=== PATIENT | male | born 1980 ===

== ENCOUNTER 2020-03-24 21:06 | Emergency (ER) | payer BC ==
[2020-03-24 21:36] LABS: Basophils % 0.2 % (0-1.3); Hematocrit 40.7 % (39.6-49.0); Lymphocytes % 8.4 % (15.3-44.8); MPV 9.4 fL (7.6-11.3); RBC Red Blood Cell Count 4.41 M/uL (4.33-5.43)
[2020-03-24] MEDS ORDERED: ONDANSETRON 4 MG/2 ML VIAL ONE (21:42)
[2020-03-24] MEDS ORDERED: NA CHLORIDE 0.9% 1,000 ML ONE ×2 (21:42→22:54)
[2020-03-24 21:50] LABS: ALT/SGPT 33 U/L (12-78); AST/SGOT 21 U/L (15-37); Albumin 3.9 g/dL (3.4-5.0); Alkaline Phosphatase 56 U/L (45-117); BUN Blood Urea Nitrogen 13 mg/dL (7-18); Bicarbonate 26 mmol/L (21-32); Bilirubin Direct < 0.1 mg/dL (0-0.2); Bilirubin Total 0.6 mg/dL (0.2-1.0); Glucose Level 98 mg/dL (74-106); Lipase 59 U/L (73-393); Potassium 3.3 mmol/L (3.5-5.1); Protein, Total 7.6 g/dL (6.4-8.2); Sodium Level 141 mmol/L (136-145)
[2020-03-24] MEDS ORDERED: PROMETHAZINE INJ 25 MG/ML AMP ONE (22:16)
[2020-03-24 22:28] LABS: Blood Morphology Comment NOT SEEN (NOT SEEN); Platelet Estimate ADEQ; White Blood Cell Scan OK (OK)
[2020-03-24] MEDS ORDERED: HALOPERIDOL LACT 5 MG/ML INJ ONE (22:54)
[2020-03-24 23:12] LABS: Barbiturates NEGATIVE (NEGATIVE); Benzodiazepines NEGATIVE (NEGATIVE); Cocaine NEGATIVE (NEGATIVE); METHAMPHETAM NEGATIVE (NEGATIVE); Methadone NEGATIVE (NEGATIVE); Opiates NEGATIVE (NEGATIVE); Phencyclidine NEGATIVE (NEGATIVE); THC Cannibis POSITIVE (NEGATIVE)
[2020-03-24 23:21] LABS: Urine Blood TRACE (NEG); Urine Glucose NEGATIVE (NEG); Urine Protein NEGATIVE (NEG); Urine pH 7.5 (5.0-7.0)
--- NOTE | 2020-03-24 23:31 | ER ---
Nurse's Notes [facility] Name: Chris Shi Age: 39 yrs Sex: Male : 1980 Arrival Date: 03/24/2020 Time: 21:08 Bed 4 Private MD: Diagnosis: Nausea and vomiting Presentation: 03/24 21:09 Chief complaint: Patient states: ADMITTED SMOKING WEED TODAY AT 1500. EMS states: rv DIFFUSED ABDOMINAL PAIN, WITH NAUSEA AND VOMITING SINCE SUNDAY. FEELING WEAK AND LOW BODY TEMP. SINUS SARAH AT 55. GIVEN ZOFRAN TWICE AND A LITER BOLUS OF NS. Coronavirus screen: Client denies travel out of the [place] in the last 14 days. cough unrelated to allergies, difficulty breathing, nausea, vomiting. Ebola Screen: No symptoms or risks identified at this time. Initial Sepsis Screen: Does the patient meet any 2 criteria? No. Patient's initial sepsis screen is negative. Does the patient have a suspected source of infection? No. Patient's initial sepsis screen is negative. Risk Assessment: Do you want to hurt yourself or someone else? Patient reports no desire to harm self or others. Onset of symptoms was March 23, 2020. 21:09 Method Of Arrival: EMS: [facility] rv 21:09 Acuity: OSWALDO 3 rv Triage Assessment: 21:14 General: Appears comfortable, Behavior is calm, cooperative. Pain: Complains of pain in rv abdomen. EENT: No signs and/or symptoms were reported regarding the EENT system. Neuro: Level of Consciousness is awake, alert, obeys commands, Oriented to person, place, time, situation. Cardiovascular: Patient's skin is warm and dry. Rhythm is sinus bradycardia. Respiratory: Reports shortness of breath on exertion Airway is patent Respiratory effort is even, unlabored, Breath sounds are clear bilaterally. Derm: Skin is intact. Historical: - Allergies: 21:13 No Known Allergies; rv - Home Meds: 21:14 losartan oral oral [Active]; rv - PMHx: 21:14 Hypertension; rv - PSHx: 21:14 Appendectomy; rv - Immunization history:: Adult Immunizations up to date. - Social history:: Smoking status: Patient reports the use of cigarette tobacco products, WEED, Patient uses street drugs, marijuana. Screenin:17 Abuse screen: Denies threats or abuse. Denies injuries from another. Nutritional rv screening: No deficits noted. Tuberculosis screening: No symptoms or risk factors identified. Fall Risk None identified. Assessment: 22:10 Reassessment: Patient and/or family updated on plan of care and expected duration. Pain ll2 level reassessed. General: Appears in no apparent distress. Behavior is calm, cooperative, appropriate for age. Pain: Denies pain. Neuro: Level of Consciousness is awake, alert, obeys commands, Oriented to person, place, time, situation. Cardiovascular: Patient's skin is warm and dry. Respiratory: Airway is patent Respiratory effort is even, unlabored, Respiratory pattern is regular, symmetrical. GI: No signs and/or symptoms were reported involving the gastrointestinal system. GI: No signs and/or symptoms were reported involving the gastrointestinal system. Reports nausea, vomiting. : No signs and/or symptoms were reported regarding the genitourinary system. EENT: No signs and/or symptoms were reported regarding the EENT system. Derm: Skin is intact, is healthy with good turgor, Skin is clammy, Skin is pink, warm \T\ dry. Skin temperature is warm. Musculoskeletal: Circulation, motion, and sensation intact. Range of motion: intact in all extremities. 23:14 Reassessment: Patient and/or family updated on plan of care and expected duration. Pain ll2 level reassessed. Patient is alert, oriented x 3, equal unlabored respirations, skin warm/dry/pink. 23:53 Reassessment: Patient and/or family updated on plan of care and expected duration. Pain ll2 level reassessed. Patient is alert, oriented x 3, equal unlabored respirations, skin warm/dry/pink. Vital Signs: 21:09 BP 139 / 103; Pulse 51; Resp 16; Temp 97.7; Pulse Ox 99% ; Weight 96.62 kg; Height 6 rv ft. 3 in. (190.50 cm); Pain 7/10; 22:44 BP 149 / 99; Pulse 63; Resp 24; Pulse Ox 96% on R/A; rv 23:53 BP 134 / 92; Pulse 45; Resp 18; Temp 98; Pulse Ox 96% on R/A; ll2 21:09 Body Mass Index 26.62 (96.62 kg, 190.50 cm) rv ED Course: 21:08 Patient arrived in ED. rv 21:09 Yuri, Dileep, RN is Primary Nurse. rv 21:11 Melodie Zuleta FNP-C is [facility]. kb 21:11 Zander Mead MD is Attending Physician. kb 21:12 Triage completed. rv 21:16 Arm band placed on right wrist. Patient placed in the treatment room, on a stretcher, rv Patient notified of wait time. 21:17 Patient has correct armband on for positive identification. monitoring tech on. Pulse rv ox on. NIBP on. 21:17 Maintain EMS IV. Dressing intact. Good blood return noted. Site clean \T\ dry. Gauge \T\ rv site: G18 LAC. 21:47 Chest Single View XRAY In Process Unspecified. EDMS Administered Medications: 21:49 Drug: NS 0.9% 1000 ml Route: IV; Rate: 1000 ml; Site: left forearm; ea 22:46 Follow up: Response: No adverse reaction; IV Status: Completed infusion; IV Intake: ll2 1000ml 21:50 Drug: Zofran (Ondansetron) 4 mg Route: IVP; Site: left forearm; ea 22:46 Follow up: Response: No adverse reaction ll2 22:09 Drug: Phenergan 12.5 mg Route: IVP; Site: left antecubital; ll2 22:46 Follow up: Response: No adverse reaction ll2 22:53 Drug: HALdol 2 mg Route: IVP; Site: left antecubital; ll2 23:41 Follow up: Response: No adverse reaction ll2 22:53 Drug: NS 0.9% 1000 ml Route: IV; Rate: 125 ml/hr; Site: left antecubital; ll2 23:53 Drug: Potassium Chloride 20 mEq Route: PO; ll2 23:53 Follow up: Response: Medication administered at discharge. ll2 Intake: 22:46 IV: 1000ml; Total: 1000ml. ll2 Outcome: 23:31 Discharge ordered by . kb 23:55 Discharged to home ambulatory. ll2 23:55 Condition: stable 23:55 Discharge instructions given to patient, Instructed on discharge instructions, follow up and referral plans. medication usage, Demonstrated understanding of instructions, follow-up care, medications, Prescriptions given X 3. 03/25 00:00 Patient left the ED. rv Signatures: Dispatcher [employer] EDMS Melodie Zuleta, SUPERCALENDER OPERATOR HELPER-C SUPERCALENDER OPERATOR HELPER-Ckb Nora Hernandez, RN RN Dileep Mccoy, RN RN rv Radha Velasco RN RN ll2
--- NOTE | 2020-03-24 23:32 | EDPHYS ---
Physician Documentation [facility] Name: Chris Shi Age: 39 yrs Sex: Male : 1980 Arrival Date: 03/24/2020 Time: 21:08 Bed 4 Private MD: ED Physician Zander Mead HPI: 03/25 00:19 This 39 yrs old Male presents to ER via EMS with complaints of n/v. kb 00:19 The patient presents to the emergency department with nausea, vomiting. Onset: The kb symptoms/episode began/occurred 4 day(s) ago. Possible causes: marijuana. The symptoms are aggravated by nothing. The symptoms are alleviated by nothing. Associated signs and symptoms: Pertinent positives: nausea, vomiting, Pertinent negatives: abdominal pain, anorexia, belching, constipation, diarrhea, dysuria, fever, flatulence, GI bleeding, hematuria. Severity of symptoms: At their worst the symptoms were moderate in the emergency department the symptoms are unchanged. The patient has not experienced similar symptoms in the past. The patient has not recently seen a physician. Historical: - Allergies: 03/24 21:13 No Known Allergies; rv - Home Meds: 21:14 losartan oral oral [Active]; rv - PMHx: 21:14 Hypertension; rv - PSHx: 21:14 Appendectomy; rv - Immunization history:: Adult Immunizations up to date. - Social history:: Smoking status: Patient reports the use of cigarette tobacco products, WEED, Patient uses street drugs, marijuana. ROS: 03/25 00:20 Constitutional: Negative for fever, chills, and weight loss, Cardiovascular: Negative kb for chest pain, palpitations, and edema, Respiratory: Negative for shortness of breath, cough, wheezing, and pleuritic chest pain, Back: Negative for injury and pain, MS/Extremity: Negative for injury and deformity, Skin: Negative for injury, rash, and discoloration, Neuro: Negative for headache, weakness, numbness, tingling, and seizure. Abdomen/GI: Positive for nausea and vomiting, Negative for abdominal pain, diarrhea, constipation. Exam: 00:20 Constitutional: This is a well developed, well nourished patient who is awake, alert, kb and in no acute distress. Head/Face: Normocephalic, atraumatic. Chest/axilla: Normal chest wall appearance and motion. Nontender with no deformity. No lesions are appreciated. Cardiovascular: Regular rate and rhythm with a normal S1 and S2. No gallops, murmurs, or rubs. Normal PMI, no JVD. No pulse deficits. Respiratory: Lungs have equal breath sounds bilaterally, clear to auscultation and percussion. No rales, rhonchi or wheezes noted. No increased work of breathing, no retractions or nasal flaring. Abdomen/GI: Soft, non-tender, with normal bowel sounds. No distension or tympany. No guarding or rebound. No evidence of tenderness throughout. Skin: Warm, dry with normal turgor. Normal color with no rashes, no lesions, and no evidence of cellulitis. MS/ Extremity: Pulses equal, no cyanosis. Neurovascular intact. Full, normal range of motion. Neuro: Awake and alert, GCS 15, oriented to person, place, time, and situation. Cranial nerves II-XII grossly intact. Motor strength 5/5 in all extremities. Sensory grossly intact. Cerebellar exam normal. Normal gait. Vital Signs: 03/24 21:09 BP 139 / 103; Pulse 51; Resp 16; Temp 97.7; Pulse Ox 99% ; Weight 96.62 kg; Height 6 rv ft. 3 in. (190.50 cm); Pain 7/10; 22:44 BP 149 / 99; Pulse 63; Resp 24; Pulse Ox 96% on R/A; rv 23:53 BP 134 / 92; Pulse 45; Resp 18; Temp 98; Pulse Ox 96% on R/A; ll2 21:09 Body Mass Index 26.62 (96.62 kg, 190.50 cm) rv MDM: 21:11 Patient medically screened. kb 03/25 00:20 Data reviewed: vital signs, nurses notes. Data interpreted: Pulse oximetry: on room air kb is 96 %. Interpretation: normal. Counseling: I had a detailed discussion with the patient and/or guardian regarding: the historical points, exam findings, and any diagnostic results supporting the discharge/admit diagnosis, lab results, radiology results, the need for outpatient follow up, a family practitioner, to return to the emergency department if symptoms worsen or persist or if there are any questions or concerns that arise at home. 03/24 21:14 Order name: Basic Metabolic Panel; Complete Time: 21:55 rv 03/24 21:14 Order name: CBC with Diff; Complete Time: 22:30 rv 03/24 21:14 Order name: Hepatic Function; Complete Time: 21:55 rv 03/24 21:14 Order name: Lipase; Complete Time: 21:55 rv 03/24 22:18 Order name: UDS; Complete Time: 23:19 kb 03/24 22:29 Order name: CBC Smear Scan; Complete Time: 22:30 EDMS 03/24 21:14 Order name: Chest Single View XRAY rv 03/24 23:16 Order name: Urine Dipstick--Ancillary (enter results); Complete Time: 23:28 tt3 03/24 21:14 Order name: IV Saline Lock; Complete Time: 21:17 rv 03/24 21:14 Order name: Labs collected and sent; Complete Time: 21:17 rv 03/24 21:14 Order name: EKG - Nurse/Tech; Complete Time: 21:26 rv 03/24 23:29 Order name: PO challenge kb Administered Medications: 03/24 21:49 Drug: NS 0.9% 1000 ml Route: IV; Rate: 1000 ml; Site: left forearm; ea 22:46 Follow up: Response: No adverse reaction; IV Status: Completed infusion; IV Intake: ll2 1000ml 21:50 Drug: Zofran (Ondansetron) 4 mg Route: IVP; Site: left forearm; ea 22:46 Follow up: Response: No adverse reaction ll2 22:09 Drug: Phenergan 12.5 mg Route: IVP; Site: left antecubital; ll2 22:46 Follow up: Response: No adverse reaction ll2 22:53 Drug: HALdol 2 mg Route: IVP; Site: left antecubital; ll2 23:41 Follow up: Response: No adverse reaction ll2 22:53 Drug: NS 0.9% 1000 ml Route: IV; Rate: 125 ml/hr; Site: left antecubital; ll2 23:53 Drug: Potassium Chloride 20 mEq Route: PO; ll2 23:53 Follow up: Response: Medication administered at discharge. ll2 Disposition: 03/25 03:31 Co-signature as Attending Physician, Zander Mead MD. [email or web address] Disposition: 03/24/20 23:31 Discharged to Home. Impression: Nausea and vomiting. - Condition is Stable. - Discharge Instructions: Nausea and Vomiting, Adult, [id number]. - Prescriptions for Bentyl 20 mg Oral Tablet - take 1 tablet by ORAL route every 6 hours As needed; 20 tablet. Zofran 4 mg Oral Tablet - take 1 tablet by ORAL route every 6 hours As needed; 20 tablet. Phenergan 25 mg Rectal Suppository - insert 1 suppository by RECTAL route every 8 hours As needed; 12 suppository. - Medication Reconciliation Form, Thank You Letter, Antibiotic Education, Prescription Opioid Use form. - Follow up: Emergency Department; When: As needed; Reason: Worsening of condition. Follow up: Private Physician; When: 2 - 3 days; Reason: Recheck today's complaints, Continuance of care, Re-evaluation by your physician. Signatures: Dispatcher [employer] EDMS Melodie Zuleta, NNEKA-C APRON MAN-Nora Saab, RN RN Dileep Mccoy RN RN rv [place], Lacie, RN RN 2 Zander Mead MD MD 7 Corrections: (The following items were deleted from the chart) 00:00 03/24 23:31 03/24/2020 23:31 Discharged to Home. Impression: Nausea and vomiting. rv Condition is Stable. Forms are Medication Reconciliation Form, Thank You Letter, Antibiotic Education, Prescription Opioid Use. Follow up: Emergency Department; When: As needed; Reason: Worsening of condition. Follow up: Private Physician; When: 2 - 3 days; Reason: Recheck today's complaints, Continuance of care, Re-evaluation by your physician. kb
[2020-03-24] MEDS ORDERED: POTASSIUM CL SA 10 MEQ TAB PO ONE (23:57)
[2020-03-25] MEDS ORDERED: POTASSIUM CL SA 10 MEQ TAB PO ONE (00:02)
--- NOTE | 2020-03-25 07:17 | RAD REPORT ---
EXAM DESCRIPTION: RAD - Chest Single View - 03/24/2020 9:47 pm CLINICAL HISTORY: COUGH COMPARISON: None TECHNIQUE: AP portable chest image was obtained 03/24/2020 9:47 pm . FINDINGS: Lungs are clear. Heart and vasculature are normal. No measurable pleural effusion and no p neumothorax. No acute bony abnormality seen. No acute aortic findings suspected. IMPRESSION: No acute cardiopulmonary process.
== END 2020-03-25 | disposition home or self-care (01) ==
LOC: ER 21:06
DX: R11.2 Nausea with vomiting, unspecified (principal); I10 Essential (primary) hypertension; F17.210 Nicotine dependence, cigarettes, uncomplicated
CPT/HCPCS: 93005; 85025; 80048; 36415; 80076; 80307 ×8; 81003; 83690; 71045; 99284; J1630; J2550; J7030 ×2; J2405